=== PATIENT | female | born 1950 | race Caucasian/White ===

== ENCOUNTER → 2017-11-28 | Outpatient (CLI) | payer OTHER ==
[~2017-11-28] MED LIST: CENTRUM SILVER1 EAC4 PO; COLACE100 MG PO; FISH OIL 1,001000 M2 PO; HYDROCODONE-AP1 EAC6 PO; LEVOTHYROXINE 0.1 MG PO; MAGNESIUM OXID400 MG PO; MILK THISTLE150 MG PO; TURMERIC500 MG PO; VITAMINC500 PO
== END ==
LOC: RAD 14:02
DX: Z12.31 Encounter for screening mammogram for malignant neoplasm of breast (principal)